=== PATIENT | female | born 1990 | race Caucasian/White ===

== ENCOUNTER 2020-02-09 13:49 | Outpatient (CLI) | payer OTHER ==
[2020-02-09] MEDS ORDERED: Lidocaine 1% PF 10 ML AMP ONE (15:00)
[2020-02-09] MEDS ORDERED: Gadobenate Dimeglumine 529 MG/1 ML (20ML VIAL) ONE (15:00)
[2020-02-09] MEDS ORDERED: EPINEPHrine 1 MG/ML AMP ONE (15:00)
[2020-02-09] MEDS ORDERED: Iopamidol 300 61% 50 ML VIAL FS ONE (15:00)
--- NOTE | 2020-02-09 16:26 | RAD ---
Arthrogram left shoulder HISTORY: Internal derangement. Shoulder pain. FINDINGS: After explaining the procedure and answering all questions, the anterior aspect of the left shoulder was prepped and draped in usual sterile fashion. Sterile technique, buffered local anesthesia, fluoroscopic guidance, and an anterior approach were us ed to carefully advance the tip of a 22-gauge spinal needle to the joint capsule at the level of the humeral head. Approximately 8 cc of a liquid mixture containing normal saline, 1% lidocaine, iodinated contrast, an d small amounts of gadolinium and epinephrine were then instilled into the joint capsule under fluoroscopic control. Needle was removed and spot images obtained. Contrast remained within the joint capsule. Patient sabina rated the procedure well and was transferred to MRI in good condition for further imaging. Fluoroscopy time 0.2 minute. IMPRESSION : Technically successful left shoulder arthrogram. No evidence of full-thickness rotator cuff tear. MRI is pending.
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
== END 2020-02-09 13:50 | disposition home or self-care (01) ==
LOC: RAD 13:49
PROVIDERS: ATTEND Orthopaedic Surgery
DX: S46.012A Strain of muscle(s) and tendon(s) of the rotator cuff of left shoulder, initial encounter (principal)
CPT/HCPCS: 23350; A9577; J0171; J2001; Q9967